=== PATIENT | female | born 2000 | race Caucasian/White ===

== ENCOUNTER 2020-10-21 18:57 | Emergency (ER) | payer SELFPAY ==
[2020-10-21] MEDS ORDERED: FLUORESCEIN SODIUM 1 STRIP STRIP ONE (19:51)
[2020-10-21] MEDS ORDERED: TETRACAINE HCL 0.5% 4 ML OPHTH SOLN ONE (19:51)
[2020-10-21] MEDS ORDERED: ERYTHROMYCIN BASE 0.5% OPHTH OINT 1 GM TUBE ONE (20:03)
[2020-10-21] MEDS ORDERED: IBUPROFEN 400 MG TABLET ONE (20:06)
[2020-10-21] MEDS ORDERED: ACETAMINOPHEN WITH CODEINE 1 TAB TAB ONE (20:06)
== END 2020-10-21 20:22 | disposition home or self-care (01) ==
LOC: EDH 18:57
DX: H57.12 Ocular pain, left eye (principal); Z90.49 Acquired absence of other specified parts of digestive tract; Z72.0 Tobacco use